=== PATIENT | female | born 1990 | race Caucasian/White ===

== ENCOUNTER 2018-07-11 17:37 | Emergency (ER) | payer OTHER ==
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
[2018-07-11] MEDS ORDERED: Acetaminophen TAB* 325 MG PO ONE (18:06)
[2018-07-11] MEDS ORDERED: Ondansetron ODT TAB* 4 MG PO ONE ×2 (18:06→19:36)
[2018-07-11 18:48] VITALS: BP 127/75
[2018-07-11] MEDS ORDERED: Ibuprofen TAB* 600 MG PO ONE (19:35)
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
== END 2018-07-11 19:55 | disposition home or self-care (01) ==
LOC: UCEAST 17:37
DX: G43.909 Migraine, unspecified, not intractable, without status migrainosus (principal); M62.838 Other muscle spasm; Z88.8 Allergy status to other drugs, medicaments and biological substances; V53.5XXA Driver of pick-up truck or van injured in collision with car, pick-up truck or van in traffic accident, initial encounter; Y92.9 Unspecified place or not applicable
CPT/HCPCS: 72040; 99213; A9270-GY; G0463